=== PATIENT | female | born 1965 | race Caucasian/White ===

== ENCOUNTER 2017-12-05 16:17 | Emergency (ER) | payer OTHER ==
[~2017-12-05] VITALS: Ht 160 cm; Wt 63.5 kg
== END 2017-12-05 19:07 | disposition home or self-care (01) ==
LOC: ER 16:17
DX: S13.8XXA Sprain of joints and ligaments of other parts of neck, initial encounter (principal); S70.01XA Contusion of right hip, initial encounter; S40.011A Contusion of right shoulder, initial encounter; G89.11 Acute pain due to trauma; M54.5 Low back pain; W18.39XA Other fall on same level, initial encounter; Y93.89 Activity, other specified; Y92.89 Other specified places as the place of occurrence of the external cause; Y99.8 Other external cause status

== ENCOUNTER 2018-02-18 09:38 | Emergency (ER) | payer OTHER ==
[~2018-02-18] VITALS: Ht 160 cm; Wt 61.2 kg
[2018-02-18] MEDS ORDERED: AMOX1TAB5 PO (12:14)
[2018-02-18] MEDS ORDERED: TUSSI PRES-B L120 M1 PO (12:14)
[2018-02-18] MEDS ORDERED: MEDROLPACK PO (12:14)
== END 2018-02-18 12:36 | disposition home or self-care (01) ==
LOC: ER 09:38
DX: J06.9 Acute upper respiratory infection, unspecified (principal); J11.1 Influenza due to unidentified influenza virus with other respiratory manifestations

== ENCOUNTER 2018-10-30 10:44 | Emergency (ER) | payer OTHER ==
[~2018-10-30] VITALS: Ht 160 cm; Wt 68.0 kg
[~2018-10-30 10:44] MED LIST: AMOX1TAB5 PO; MEDROLPACK PO; TUSSI PRES-B L120 M1 PO
[2018-10-30] MEDS ORDERED: LEVSIN/SL0.125 MG SL (17:30)
[2018-10-30] MEDS ORDERED: PEPCID AC20 MG PO (17:30)
[2018-10-30] MEDS ORDERED: ZOFRAN4 MG PO (17:30)
[2018-10-30] MEDS ORDERED: INTESTINEX680 M1 PO (17:30)
== END 2018-10-30 17:50 | disposition home or self-care (01) ==
LOC: ER 10:44
DX: K52.89 Other specified noninfective gastroenteritis and colitis (principal)

== ENCOUNTER 2018-11-10 21:28 | Emergency (ER) | payer OTHER ==
[~2018-11-10] VITALS: Ht 160 cm; Wt 63.5 kg
[~2018-11-10 21:28] MED LIST changes: +INTESTINEX680 M1 PO; +LEVSIN/SL0.125 MG SL; +PEPCID AC20 MG PO; +ZOFRAN4 MG PO
== END 2018-11-11 09:56 | disposition home or self-care (01) ==
LOC: ER 21:28
DX: I80.8 Phlebitis and thrombophlebitis of other sites (principal); L76.32 Postprocedural hematoma of skin and subcutaneous tissue following other procedure; S51.842S Puncture wound with foreign body of left forearm, sequela; Y84.8 Other medical procedures as the cause of abnormal reaction of the patient, or of later complication, without mention of misadventure at the time of the procedure

== ENCOUNTER 2019-03-20 13:55 | Emergency (ER) | payer OTHER ==
[~2019-03-20] VITALS: Ht 162.6 cm; Wt 63.5 kg
[2019-03-20] MEDS ORDERED: TUSNEL DM LIQU473 ML PO (16:25)
[2019-03-20] MEDS ORDERED: CLARITIN10 M1 PO (16:25)
== END 2019-03-20 16:47 | disposition home or self-care (01) ==
LOC: ER 13:55
DX: J00 Acute nasopharyngitis [common cold] (principal)

== ENCOUNTER 2019-04-03 10:30 | Outpatient (CLI) | payer OTHER ==
[~2019-04-03 10:30] MED LIST changes: +CLARITIN10 M1 PO; +TUSNEL DM LIQU473 ML PO
== END 2019-04-03 15:36 | disposition home or self-care (01) ==
LOC: LAB 10:30
DX: E55.9 Vitamin D deficiency, unspecified (principal); R42 Dizziness and giddiness; R00.2 Palpitations; E78.5 Hyperlipidemia, unspecified; Z00.00 Encounter for general adult medical examination without abnormal findings

== ENCOUNTER 2019-04-25 14:29 | Emergency (ER) | payer OTHER ==
[~2019-04-25] VITALS: Ht 160 cm; Wt 68.0 kg
== END 2019-04-25 19:00 | disposition home or self-care (01) ==
LOC: ER 14:29
DX: B33.8 Other specified viral diseases (principal); B96.0 Mycoplasma pneumoniae [M. pneumoniae] as the cause of diseases classified elsewhere

== ENCOUNTER 2019-05-01 14:57 | Outpatient (CLI) | payer OTHER | END 2019-05-01 14:58 | disposition home or self-care (01) | LOC: RAD 14:57 | DX: B96.0 Mycoplasma pneumoniae [M. pneumoniae] as the cause of diseases classified elsewhere (principal); R05 Cough ==

== ENCOUNTER 2019-08-21 14:22 | Emergency (ER) | payer OTHER ==
[~2019-08-21] VITALS: Ht 160 cm; Wt 74.8 kg
[2019-08-21] MEDS ORDERED: KETO10TA2 PO (18:32)
[2019-08-21] MEDS ORDERED: NORFLEX100MG PO (18:32)
[2019-08-21] MEDS ORDERED: TUSNEL LIQUID178 ML PO (18:32)
[2019-08-21] MEDS ORDERED: CLARITIN10 MG PO (18:32)
== END 2019-08-21 21:09 | disposition home or self-care (01) ==
LOC: ER 14:22
DX: J00 Acute nasopharyngitis [common cold] (principal); M62.838 Other muscle spasm

== ENCOUNTER 2019-08-25 16:06 | Emergency (ER) | payer OTHER ==
[~2019-08-25] VITALS: Ht 160 cm; Wt 63.5 kg
[~2019-08-25 16:06] MED LIST changes: +CLARITIN10 MG PO; +KETO10TA2 PO; +NORFLEX100MG PO; +TUSNEL LIQUID178 ML PO
== END 2019-08-25 19:21 | disposition home or self-care (01) ==
LOC: ER 16:06
DX: M47.892 Other spondylosis, cervical region (principal); M54.6 Pain in thoracic spine; M54.5 Low back pain; M25.512 Pain in left shoulder; M25.511 Pain in right shoulder

== ENCOUNTER 2020-11-19 17:00 | Emergency (ER) | payer OTHER ==
[~2020-11-19] VITALS: Ht 160 cm; Wt 65.8 kg
== END 2020-11-19 18:53 | disposition home or self-care (01) ==
LOC: ER 17:00
DX: M54.2 Cervicalgia (principal); M62.838 Other muscle spasm; M94.0 Chondrocostal junction syndrome [Tietze]

== ENCOUNTER 2020-11-29 18:15 | Emergency (ER) | payer OTHER ==
[~2020-11-29] VITALS: Ht 160 cm; Wt 63.5 kg
== END 2020-11-29 22:36 | disposition home or self-care (01) ==
LOC: ER 18:15
DX: R00.2 Palpitations (principal); G89.29 Other chronic pain; M54.2 Cervicalgia

== ENCOUNTER 2020-12-07 16:11 | Outpatient (CLI) | payer OTHER | END 2020-12-07 16:23 | disposition home or self-care (01) | LOC: MRI 16:11 | DX: M54.2 Cervicalgia (principal) | CPT/HCPCS: 72141 ==

== ENCOUNTER 2021-04-10 18:44 | Emergency (ER) | payer OTHER ==
[~2021-04-10] VITALS: Ht 160 cm; Wt 68.0 kg
[2021-04-10] MEDS ORDERED: MUPIROCIN15 GM TOP (20:47)
[2021-04-10] MEDS ORDERED: SM CALAMINE LO177 ML TOP (20:47)
[2021-04-10] MEDS ORDERED: MEDROLPACK PO (20:47)
== END 2021-04-10 20:51 | disposition home or self-care (01) ==
LOC: ER 18:44
DX: R21 Rash and other nonspecific skin eruption (principal); L20.89 Other atopic dermatitis

== ENCOUNTER → 2021-04-15 10:15 | Outpatient (CLI) | payer OTHER ==
[~2021-04-15 10:15] MED LIST changes: +ALLEGRA ALLERG180 MG PO; +MUPIROCIN15 GM TOP; +SM CALAMINE LO177 ML TOP
== END | disposition home or self-care (01) ==
LOC: LAB 10:15
PROVIDERS: ATTEND Obstetrics & Gynecology
DX: E11.9 Type 2 diabetes mellitus without complications (principal); E03.0 Congenital hypothyroidism with diffuse goiter; E78.00 Pure hypercholesterolemia, unspecified; N39.0 Urinary tract infection, site not specified; N91.1 Secondary amenorrhea

== ENCOUNTER 2021-04-16 00:36 | Emergency (ER) | payer OTHER ==
[~2021-04-16] VITALS: Ht 160 cm; Wt 68.0 kg
[~2021-04-16 00:36] MED LIST changes: -ALLEGRA ALLERG180 MG PO
[2021-04-16] MEDS ORDERED: ALLEGRA ALLERG180 MG PO (01:44)
== END 2021-04-16 02:07 | disposition home or self-care (01) ==
LOC: ER 00:36
DX: T78.49XA Other allergy, initial encounter (principal); X58.XXXA Exposure to other specified factors, initial encounter

== ENCOUNTER 2021-05-02 11:22 | Outpatient (CLI) | payer OTHER ==
[~2021-05-02 11:22] MED LIST changes: +ALLEGRA ALLERG180 MG PO
== END 2021-05-02 11:37 | disposition home or self-care (01) ==
LOC: MAMO-SONO 11:22
PROVIDERS: ATTEND Obstetrics & Gynecology
DX: N60.11 Diffuse cystic mastopathy of right breast (principal); N60.12 Diffuse cystic mastopathy of left breast; Z12.31 Encounter for screening mammogram for malignant neoplasm of breast

== ENCOUNTER 2021-07-02 15:54 | Emergency (ER) | payer OTHER ==
[~2021-07-02] VITALS: Ht 160 cm; Wt 65.8 kg
== END 2021-07-02 19:40 | disposition home or self-care (01) ==
LOC: ER 15:54
DX: M54.2 Cervicalgia (principal); M62.838 Other muscle spasm; M79.642 Pain in left hand

== ENCOUNTER 2021-07-03 12:39 | Outpatient (CLI) | payer OTHER | END 2021-07-03 12:44 | disposition home or self-care (01) | LOC: MRI 12:39 | PROVIDERS: ATTEND Emergency Medicine | DX: M47.892 Other spondylosis, cervical region (principal); M79.602 Pain in left arm; R20.8 Other disturbances of skin sensation | CPT/HCPCS: 72141 ==

== ENCOUNTER → 2021-07-03 | Outpatient (CLI) | payer OTHER | END | disposition home or self-care (01) | LOC: NUCLEAR 11:47 | PROVIDERS: ATTEND Emergency Medicine | DX: M79.602 Pain in left arm (principal); G54.2 Cervical root disorders, not elsewhere classified; R20.0 Anesthesia of skin ==

== ENCOUNTER 2021-11-04 15:31 | Emergency (ER) | payer OTHER ==
[~2021-11-04] VITALS: Ht 160 cm; Wt 63.5 kg
== END 2021-11-04 16:44 | disposition home or self-care (01) ==
LOC: ER 15:31
DX: M77.51 Other enthesopathy of right foot and ankle (principal)

== ENCOUNTER 2022-02-26 09:07 | Outpatient (CLI) | payer OTHER | END 2022-02-26 09:14 | disposition home or self-care (01) | LOC: LAB 09:07 | DX: R73.9 Hyperglycemia, unspecified (principal); E78.5 Hyperlipidemia, unspecified; D64.9 Anemia, unspecified; E87.6 Hypokalemia; R74.01 Elevation of levels of liver transaminase levels; N39.0 Urinary tract infection, site not specified ==

== ENCOUNTER → 2022-09-28 09:40 | Outpatient (CLI) | payer OTHER | END | disposition home or self-care (01) | LOC: LAB 09:40 | DX: D64.9 Anemia, unspecified (principal); R74.01 Elevation of levels of liver transaminase levels; R94.6 Abnormal results of thyroid function studies; N39.0 Urinary tract infection, site not specified; R73.9 Hyperglycemia, unspecified; E78.00 Pure hypercholesterolemia, unspecified ==

== ENCOUNTER 2022-10-01 08:50 | Emergency (ER) | payer OTHER ==
[~2022-10-01] VITALS: Ht 160 cm; Wt 65.8 kg
== END 2022-10-01 10:23 | disposition home or self-care (01) ==
LOC: ER 08:50
DX: J06.9 Acute upper respiratory infection, unspecified (principal); Z20.822 Contact with and (suspected) exposure to COVID-19

== ENCOUNTER 2022-10-11 11:22 | Emergency (ER) | payer OTHER ==
[~2022-10-11] VITALS: Ht 162.6 cm; Wt 61.2 kg
== END 2022-10-11 17:51 | disposition home or self-care (01) ==
LOC: ER 11:22
DX: R51.9 Headache, unspecified (principal)

== ENCOUNTER 2022-10-24 13:38 | Outpatient (CLI) | payer OTHER | END 2022-10-24 13:46 | disposition home or self-care (01) | LOC: MAMO-SONO 13:38 | DX: Z12.31 Encounter for screening mammogram for malignant neoplasm of breast (principal); M48.02 Spinal stenosis, cervical region | CPT/HCPCS: 72141 ==

== ENCOUNTER 2022-11-16 11:45 | Outpatient (CLI) | payer OTHER | END 2022-11-16 11:50 | disposition home or self-care (01) | LOC: RAD 11:45 | DX: J44.9 Chronic obstructive pulmonary disease, unspecified (principal) ==

== ENCOUNTER 2023-01-01 17:12 | Emergency (ER) | payer OTHER ==
[~2023-01-01] VITALS: Ht 162.6 cm; Wt 63.5 kg
== END 2023-01-01 21:29 | disposition home or self-care (01) ==
LOC: ER 17:12
DX: S92.911A Unspecified fracture of right toe(s), initial encounter for closed fracture (principal); W22.8XXA Striking against or struck by other objects, initial encounter; Y93.89 Activity, other specified; Y92.832 Beach as the place of occurrence of the external cause

== ENCOUNTER 2023-01-20 22:22 | Emergency (ER) | payer OTHER ==
[~2023-01-20] VITALS: Ht 160 cm; Wt 63.5 kg
[2023-01-21] MEDS ORDERED: DICLOFENAC SODI75 MG PO (03:08)
== END 2023-01-21 03:31 ==
LOC: ER 22:22
DX: B34.8 Other viral infections of unspecified site (principal); Z20.822 Contact with and (suspected) exposure to COVID-19

== ENCOUNTER 2023-07-15 09:14 | Emergency (ER) | payer OTHER ==
[~2023-07-15] VITALS: Ht 162.6 cm; Wt 63.5 kg
[~2023-07-15 09:14] MED LIST changes: +DICLOFENAC SODI75 MG PO
[2023-07-15 11:02] LABS: PH,URINE 6.5 (5.0-8.0); URINE APPEARANCE Clear; URINE BILIRRUBIN Negative (NEGATIVE); URINE BLOOD Small; URINE COLOR Yellow; URINE GLUCOSE Negative (NEGATIVE); URINE LEUKOCYTE Moderate; URINE NITRATE Negative; URINE PROTEIN Negative (NEGATIVE); URINE UROBILINOGEN 0.2 E.U./dl
[2023-07-15 11:04] LABS: HEMATOCRIT 38.4 % (36.0-45.00); MEAN CELL VOLUME 93.3 fL (80.00-100.00); MEAN CORPUSCULAR HEMOGLOBIN 31.6 pg (27.00-32.0); MEAN CORPUSCULAR HGB CONC 33.9 g/dl (32.0-36.0); PLATELET COUNT 321 K/uL (150-450); RED BLOOD COUNT 4.12 M/uL (4.00-6.00); RED CELL DISTRIBUTION WIDTH 13.4 % (11.5-14.5)
[2023-07-15 11:08] LABS: URINE BACTERIA 2786.4 uL (0.0-1933); URINE EPITHELIAL CELLS 6.8 uL (0.0-38.8); URINE RBC 7.1 uL (0.0-20.8); URINE WBC 448.9 uL (0.0-23.2)
[2023-07-15 11:20] LABS: CALCIUM 9.1 mg/dL (8.5-10.1); CREATININE SERUM 0.65 mg/dL (0.55-1.02); GFR 94.29; POTASSIUM 4.19 mEq/L (3.5-5.1)
== END 2023-07-15 13:58 | disposition home or self-care (01) ==
LOC: ER 09:14
PROVIDERS: General Practice
DX: N30.80 Other cystitis without hematuria (principal)
CPT/HCPCS: 36415; 96372; 99284; J0696

== ENCOUNTER 2023-07-30 10:36 | Emergency (ER) | payer OTHER ==
[~2023-07-30] VITALS: Ht 160 cm; Wt 65.8 kg
[2023-07-30 13:50] LABS: HEMATOCRIT 40.2 % (36.0-45.00); HEMOGLOBIN 13.8 g/dL (12.0-15.00); MEAN CELL VOLUME 92.6 fL (80.00-100.00); MEAN CORPUSCULAR HEMOGLOBIN 31.8 pg (27.00-32.0); MEAN CORPUSCULAR HGB CONC 34.3 g/dl (32.0-36.0); PLATELET COUNT 363 K/uL (150-450); RED BLOOD COUNT 4.33 M/uL (4.00-6.00); RED CELL DISTRIBUTION WIDTH 12.6 % (11.5-14.5)
[2023-07-30 14:15] LABS: ALBUMIN 3.9 gm/dL (3.4-5.0); BILIRUBIN TOTAL 0.48 mg/dL (0.3-1.2); CALCIUM 9.7 mg/dL (8.5-10.1); CREATININE SERUM 0.61 mg/dL (0.55-1.02); GFR 101.46; GLOBULINA 4.4 G/DL (2.4-3.5); POTASSIUM 3.94 mEq/L (3.5-5.1); TOTAL PROTEIN 8.3 gm/dL (6.4-8.2)
== END 2023-07-30 18:00 | disposition home or self-care (01) ==
LOC: ER 10:36
PROVIDERS: Emergency Medicine
DX: R42 Dizziness and giddiness (principal)

== ENCOUNTER 2024-02-20 12:13 | Emergency (ER) | payer OTHER ==
[~2024-02-20] VITALS: Ht 160 cm; Wt 63.5 kg
[2024-02-20 14:07] LABS: MEAN CORPUSCULAR HEMOGLOBIN 31.7 pg (27.00-32.0); MEAN CORPUSCULAR HGB CONC 34.1 g/dl (32.0-36.0); PLATELET COUNT 366 K/uL (150-450); RED BLOOD COUNT 4.41 M/uL (4.00-6.00); RED CELL DISTRIBUTION WIDTH 13.7 % (11.5-14.5)
[2024-02-20] MEDS ORDERED: DEXAMETHASONE SODIUM PHOSPHATE 4 MG/ML VIAL IM STA (16:16)
[2024-02-20] MEDS ORDERED: ORPHENADRINE CITRATE 30 MG/ML AMPUL IM STA (16:16)
[2024-02-20] MEDS ORDERED: CARISOPRODL-AS1 EACH PO ×2 (16:18→16:27)
[2024-02-20] MEDS ORDERED: DEXAMETHASONE SODIUM PHOSPHATE 4 MG/ML VIAL ONE (16:21)
[2024-02-20] MEDS ORDERED: ORPHENADRINE CITRATE 100 MG TABLET PO ONE (16:30)
== END 2024-02-20 16:56 | disposition home or self-care (01) ==
LOC: ER 12:13
DX: M62.838 Other muscle spasm (principal); M54.2 Cervicalgia; G89.29 Other chronic pain
CPT/HCPCS: 36415; 72125; 96372; 99284; J1100; J2360

== ENCOUNTER 2024-02-28 09:27 | Outpatient (CLI) | payer OTHER ==
[~2024-02-28 09:27] MED LIST changes: +CARISOPRODL-AS1 EACH PO
[2024-02-28 10:25] LABS: HEMATOCRIT 39.5 % (36.0-45.00); HEMOGLOBIN 13.2 g/dL (12.0-15.00); MEAN CELL VOLUME 93.6 fL (80.00-100.00); MEAN CORPUSCULAR HEMOGLOBIN 31.2 pg (27.00-32.0); MEAN CORPUSCULAR HGB CONC 33.3 g/dl (32.0-36.0); PLATELET COUNT 331 K/uL (150-450); RED BLOOD COUNT 4.22 M/uL (4.00-6.00); RED CELL DISTRIBUTION WIDTH 13.2 % (11.5-14.5)
[2024-02-28 10:27] LABS: URINE APPEARANCE Clear; URINE BILIRRUBIN Negative (NEGATIVE); URINE BLOOD Negative; URINE COLOR Yellow; URINE GLUCOSE Negative (NEGATIVE); URINE KETONE Negative (NEGATIVE); URINE LEUKOCYTE Negative; URINE NITRATE Negative; URINE PROTEIN Negative (NEGATIVE); URINE UROBILINOGEN 0.2 E.U./dl
[2024-02-28 10:28] LABS: URINE BACTERIA 11.3 uL (0.0-1933); URINE EPITHELIAL CELLS 2.7 uL (0.0-38.8); URINE RBC 3.9 uL (0.0-20.8)
[2024-02-28 10:31] LABS: URINE WBC 0.4 uL (0.0-23.2)
[2024-02-28 11:20] LABS: ALBUMIN 3.7 gm/dL (3.4-5.0); BILIRUBIN TOTAL 0.35 mg/dL (0.3-1.2); CALCIUM 9.2 mg/dL (8.5-10.1); CHOL HDL RATIO 3.9 (0-5.0); CREATININE SERUM 0.61 mg/dL (0.55-1.02); GFR 101.09; GLOBULINA 3.6 G/DL (2.4-3.5); POTASSIUM 4.4 mEq/L (3.5-5.1); T4 FREE 0.79 NG/ML (0.76-1.46); TOTAL PROTEIN 7.3 gm/dL (6.4-8.2); TSH 0.696 uIU/mL (0.358-3.74)
== END 2024-02-28 09:37 | disposition home or self-care (01) ==
LOC: LAB 09:27
PROVIDERS: ATTEND Obstetrics & Gynecology
DX: E11.9 Type 2 diabetes mellitus without complications (principal); E03.0 Congenital hypothyroidism with diffuse goiter; E78.00 Pure hypercholesterolemia, unspecified; N39.0 Urinary tract infection, site not specified; K76.9 Liver disease, unspecified; R63.4 Abnormal weight loss; A60.04 Herpesviral vulvovaginitis; R21 Rash and other nonspecific skin eruption; R50.9 Fever, unspecified

== ENCOUNTER 2024-02-28 10:54 | Outpatient (CLI) | payer OTHER | END 2024-02-28 11:13 | disposition home or self-care (01) | LOC: MRI 10:54 | PROVIDERS: ATTEND Obstetrics & Gynecology | DX: M48.02 Spinal stenosis, cervical region (principal); M50.322 Other cervical disc degeneration at C5-C6 level | CPT/HCPCS: 72141 ==

== ENCOUNTER 2024-03-06 09:05 | Outpatient (CLI) | payer OTHER | END 2024-03-06 09:19 | disposition home or self-care (01) | LOC: MRI 09:05 | DX: R51.9 Headache, unspecified (principal); H81.4 Vertigo of central origin | CPT/HCPCS: 70551 ==

== ENCOUNTER 2024-03-12 08:59 | Outpatient (CLI) | payer OTHER ==
[2024-03-12 09:51] LABS: HEMATOCRIT 40.3 % (36.0-45.00); HEMOGLOBIN 13.5 g/dL (12.0-15.00); MEAN CELL VOLUME 94.1 fL (80.00-100.00); MEAN CORPUSCULAR HEMOGLOBIN 31.6 pg (27.00-32.0); MEAN CORPUSCULAR HGB CONC 33.5 g/dl (32.0-36.0); PLATELET COUNT 338 K/uL (150-450); RED BLOOD COUNT 4.28 M/uL (4.00-6.00); RED CELL DISTRIBUTION WIDTH 12.8 % (11.5-14.5)
[2024-03-12 11:49] LABS: ALBUMIN 3.9 gm/dL (3.4-5.0); BILIRUBIN TOTAL 0.57 mg/dL (0.3-1.2); CALCIUM 9.9 mg/dL (8.5-10.1); CREATININE SERUM 0.69 mg/dL (0.55-1.02); GFR 87.69; GLOBULINA 4.1 G/DL (2.4-3.5); POTASSIUM 4.86 mEq/L (3.5-5.1)
[2024-03-12 12:03] LABS: VITAMIN D3 25 HYDROXY 31.34 ng/ml (30-120)
== END 2024-03-12 09:03 | disposition home or self-care (01) ==
LOC: LAB 08:59
DX: E55.9 Vitamin D deficiency, unspecified (principal); D51.9 Vitamin B12 deficiency anemia, unspecified; D64.9 Anemia, unspecified

== ENCOUNTER 2024-03-18 09:15 | Outpatient (CLI) | payer OTHER | END 2024-03-18 09:16 | disposition home or self-care (01) | LOC: NUCLEAR 09:15 | DX: I65.29 Occlusion and stenosis of unspecified carotid artery (principal) ==

== ENCOUNTER 2024-07-17 13:37 | Outpatient (CLI) | payer OTHER | END 2024-07-17 14:06 | disposition home or self-care (01) | LOC: MRI 13:37 | DX: M54.50 Low back pain, unspecified (principal) | CPT/HCPCS: 72148 ==

== ENCOUNTER 2024-09-23 09:44 | Outpatient (CLI) | payer OTHER ==
[2024-09-23 10:55] LABS: PH,URINE 6.5 (5.0-8.0); URINE APPEARANCE Clear; URINE BILIRRUBIN Negative (NEGATIVE); URINE BLOOD Negative; URINE COLOR Yellow; URINE GLUCOSE Negative (NEGATIVE); URINE KETONE Negative (NEGATIVE); URINE LEUKOCYTE Negative; URINE NITRATE Negative; URINE PROTEIN Negative (NEGATIVE); URINE UROBILINOGEN 0.2 E.U./dl
[2024-09-23 10:56] LABS: URINE BACTERIA 14.6 uL (0.0-1933); URINE RBC 13.2 uL (0.0-20.8)
[2024-09-23 11:03] LABS: URINE EPITHELIAL CELLS 0.4 uL (0.0-38.8); URINE WBC 0.9 uL (0.0-23.2)
[2024-09-23 11:06] LABS: HEMATOCRIT 38.7 % (36.0-45.00); HEMOGLOBIN 12.8 g/dL (12.0-15.00); MEAN CELL VOLUME 94.3 fL (80.00-100.00); MEAN CORPUSCULAR HEMOGLOBIN 31.1 pg (27.00-32.0); PLATELET COUNT 304 K/uL (150-450); RED CELL DISTRIBUTION WIDTH 13.1 % (11.5-14.5)
[2024-09-23 12:03] LABS: ALBUMIN 3.6 gm/dL (3.4-5.0); BILIRUBIN TOTAL 0.3 mg/dL (0.3-1.2); CALCIUM 9.3 mg/dL (8.5-10.1); CHOL HDL RATIO 3.5 (0-5.0); CREATININE SERUM 0.62 mg/dL (0.55-1.02); GFR 98.86; GLOBULINA 3.4 G/DL (2.4-3.5); POTASSIUM 4.18 mEq/L (3.5-5.1)
[2024-09-23 14:32] LABS: T3 TOTAL 1.21 ng/ml (0.846-2.02); VITAMIN D3 25 HYDROXY 31.45 ng/ml (30-120)
[2024-09-23 20:13] LABS: T4 TOTAL 7.67 UG/DL (4.8-13.9); TSH 0.795 uIU/mL (0.358-3.74)
[2024-09-24 09:05] LABS: FOLLICLE STIMULATING HORMONE 73.8 mIU/mL (.); LEUTEINIZING HORMONE 27.8 mIU/mL (.)
== END 2024-09-23 09:50 | disposition home or self-care (01) ==
LOC: LAB 09:44
DX: D64.9 Anemia, unspecified (principal); R74.01 Elevation of levels of liver transaminase levels; Z13.220 Encounter for screening for lipoid disorders; Z13.29 Encounter for screening for other suspected endocrine disorder; R73.9 Hyperglycemia, unspecified; N39.0 Urinary tract infection, site not specified; R80.9 Proteinuria, unspecified; N95.1 Menopausal and female climacteric states; E55.9 Vitamin D deficiency, unspecified

== ENCOUNTER 2024-10-12 09:20 | Outpatient (CLI) | payer OTHER | END 2024-10-12 09:23 | disposition home or self-care (01) | LOC: LAB 09:20 | PROVIDERS: ATTEND Obstetrics & Gynecology | DX: N39.0 Urinary tract infection, site not specified (principal) ==

== ENCOUNTER 2025-01-28 09:59 | Outpatient (CLI) | payer OTHER | END 2025-01-28 10:13 | disposition home or self-care (01) | LOC: MRI 09:59 | DX: M25.561 Pain in right knee (principal); M54.2 Cervicalgia; M54.00 Panniculitis affecting regions of neck and back, site unspecified; M25.559 Pain in unspecified hip; R10.2 Pelvic and perineal pain | CPT/HCPCS: 72141; 72148; 73721 ==

== ENCOUNTER 2025-04-20 10:35 | Outpatient (CLI) | payer OTHER ==
[2025-04-20 11:15] LABS: BASO % 0.5 % (0.1-1.2); EOS # 0.14 (0.04-0.54); EOS % 1.8 % (0.7-7.0); LYMPH # 2.74 (1.18-3.74); LYMPH % 35.9 % (19.3-53.1); MEAN PLATELET VOLUME 10.20 fl (9.4-12.4); MONO # 0.40 (0.24-0.82); MONO % 5.2 % (4.7-12.5); NEUT # 4.31 (1.56-6.13); NEUT % 56.5 % (34.0-71.1); RED CELL DISTRIBUTION WIDTH 12.2 % (11.6-14.4)
[2025-04-20 11:20] LABS: ERYTHROCYTE SEDIMENTATION RATE 37 mm/hr (0-30)
[2025-04-20 11:28] LABS: URINE APPEARANCE Clear; URINE BILIRRUBIN Negative (NEGATIVE); URINE COLOR Yellow; URINE GLUCOSE Negative (NEGATIVE); URINE KETONE Negative (NEGATIVE); URINE LEUKOCYTE Negative; URINE NITRATE Negative; URINE PROTEIN Negative (NEGATIVE); URINE UROBILINOGEN 0.2 E.U./dl
[2025-04-20 11:33] LABS: URINE RBC 8.3 uL (0.0-20.8)
[2025-04-20 11:34] LABS: URINE BACTERIA 3.5 uL (0.0-1933); URINE CAST 0.00 uL (0.0-1.40); URINE EPITHELIAL CELLS 1.3 uL (0.0-38.8); URINE WBC 0.3 uL (0.0-23.2)
[2025-04-20 11:35] LABS: URINE BLOOD TRACES
[2025-04-20 12:24] LABS: ALT/SGPT 25 U/L (12-78); AST/SGOT 13 U/L (15-37); BILIRUBIN TOTAL 0.40 mg/dL (0.3-1.2); BUN CREA RATIO 17 (7.0-25.0); CHOL HDL RATIO 3.9 (0-5.0); CREATININE SERUM 0.70 mg/dL (0.55-1.02); GFR 85.94; GLOBULINA 3.4 G/DL (2.4-3.5); GLUCOSE FASTING 95 mg/dL (65-100); HDL 59 mg/dl (40-60); LDL 159 mg/dl (0-130); OSMOLALITY SERUM 283 MOSM/KG (275-295); T4 TOTAL 7.14 UG/DL (4.8-13.9); TSH 0.820 uIU/mL (0.358-3.74); VLDL 13 (0-39)
[2025-04-20 13:17] LABS: T3 TOTAL 1.22 ng/ml (0.846-2.02); VITAMIN D3 25 HYDROXY 34.33 ng/ml (30-120)
== END 2025-04-20 10:43 | disposition home or self-care (01) ==
LOC: LAB 10:35
DX: D64.9 Anemia, unspecified (principal); R74.01 Elevation of levels of liver transaminase levels; E78.00 Pure hypercholesterolemia, unspecified; R73.9 Hyperglycemia, unspecified; R82.90 Unspecified abnormal findings in urine; E03.9 Hypothyroidism, unspecified; E55.9 Vitamin D deficiency, unspecified; R65.10 Systemic inflammatory response syndrome (SIRS) of non-infectious origin without acute organ dysfunction; D51.9 Vitamin B12 deficiency anemia, unspecified

== ENCOUNTER 2025-04-26 09:49 | Emergency (ER) | payer OTHER ==
[~2025-04-26] VITALS: Ht 157.5 cm; Wt 72.6 kg
[2025-04-26] MEDS ORDERED: KETOROLAC TROMETHAMINE 60 MG VIAL IM ONE ×2 (10:45→10:55)
[2025-04-26] MEDS ORDERED: ORPHENADRINE CITRATE 100 MG TABLET PO ONE (10:45)
[2025-04-26] MEDS ORDERED: DEXAMETHASONE SODIUM PHOSPHATE 4 MG/ML VIAL IM ONE (10:45)
[2025-04-26] MEDS ORDERED: DEXAMETHASONE SODIUM PHOSPHATE 4 MG/ML VIAL ONE (10:55)
[2025-04-26 12:13] LABS: BASO % 0.1 % (0.1-1.2); EOS # 0.01 (0.04-0.54); EOS % 0.1 % (0.7-7.0); LYMPH # 2.84 (1.18-3.74); LYMPH % 15.2 % (19.3-53.1); MEAN PLATELET VOLUME 10.10 fl (9.4-12.4); MONO # 0.91 (0.24-0.82); MONO % 4.9 % (4.7-12.5); NEUT # 14.86 (1.56-6.13); NEUT % 79.2 % (34.0-71.1); RED CELL DISTRIBUTION WIDTH 12.3 % (11.6-14.4)
[2025-04-26 12:36] LABS: INR 1.01
[2025-04-26 12:39] LABS: ALT/SGPT 26.0 U/L (12-78); AST/SGOT 15.0 U/L (15-37); BILIRUBIN TOTAL 0.37 mg/dL (0.3-1.2); BUN CREA RATIO 23.0 (7.0-25.0); CREATININE SERUM 0.73 mg/dL (0.55-1.02); GFR 81.88; GLOBULINA 3.7 G/DL (2.4-3.5); GLUCOSE FASTING 92.0 mg/dL (65-100); OSMOLALITY SERUM 284.0 MOSM/KG (275-295)
[2025-04-26 12:48] LABS: URINE APPEARANCE Clear; URINE BILIRRUBIN Negative (NEGATIVE); URINE BLOOD Negative; URINE COLOR Yellow; URINE GLUCOSE Negative (NEGATIVE); URINE KETONE Negative (NEGATIVE); URINE LEUKOCYTE Negative; URINE NITRATE Negative; URINE PROTEIN 30 (NEGATIVE); URINE UROBILINOGEN 1.0 E.U./dl
[2025-04-26 12:50] LABS: URINE BACTERIA 92.3 uL (0.0-1933); URINE EPITHELIAL CELLS 50.4 uL (0.0-38.8); URINE RBC 23.6 uL (0.0-20.8); URINE WBC 9.2 uL (0.0-23.2)
[2025-04-26 12:56] LABS: URINE CAST 0.00 uL (0.0-1.40)
[2025-04-26 13:33] LABS: COVID-19 AG NEGATIVE (NEGATIVE)
[2025-04-26] MEDS ORDERED: NAPROXEN500 MG PO (14:47)
[2025-04-26] MEDS ORDERED: FEXMID7.5 MG PO (14:49)
== END 2025-04-26 18:16 | disposition home or self-care (01) ==
LOC: ER 09:50
DX: M54.2 Cervicalgia (principal); R51.9 Headache, unspecified; Z20.822 Contact with and (suspected) exposure to COVID-19
CPT/HCPCS: 36415; 70450; 71046; 72040; 93005; 96372; 99284; J1100; J1885

== ENCOUNTER 2025-05-04 09:38 | Outpatient (CLI) | payer OTHER ==
[~2025-05-04 09:38] MED LIST changes: +FEXMID7.5 MG PO; +NAPROXEN500 MG PO
[2025-05-04 10:18] LABS: BASO % 0.2 % (0.1-1.2); EOS # 0.11 (0.04-0.54); EOS % 0.7 % (0.7-7.0); LYMPH # 6.19 (1.18-3.74); LYMPH % 41.7 % (19.3-53.1); MEAN PLATELET VOLUME 9.90 fl (9.4-12.4); MONO # 1.03 (0.24-0.82); MONO % 6.9 % (4.7-12.5); NEUT # 7.33 (1.56-6.13); NEUT % 49.5 % (34.0-71.1); RED CELL DISTRIBUTION WIDTH 12.2 % (11.6-14.4)
[2025-05-04 10:23] LABS: URINE APPEARANCE Clear; URINE BILIRRUBIN Negative (NEGATIVE); URINE BLOOD Negative; URINE COLOR Yellow; URINE GLUCOSE Negative (NEGATIVE); URINE KETONE Trace (NEGATIVE); URINE LEUKOCYTE Negative; URINE NITRATE Negative; URINE PROTEIN Negative (NEGATIVE); URINE UROBILINOGEN 0.2 E.U./dl
[2025-05-04 10:26] LABS: URINE EPITHELIAL CELLS 2.4 uL (0.0-38.8); URINE RBC 10.4 uL (0.0-20.8); URINE WBC 1.9 uL (0.0-23.2)
[2025-05-04 10:43] LABS: URINE BACTERIA 3.5 uL (0.0-1933); URINE CAST 0.29 uL (0.0-1.40)
[2025-05-05] MEDS ORDERED: DEXAMETHAS0.5 MG/5 M PO (21:05)
== END 2025-05-04 09:40 | disposition home or self-care (01) ==
LOC: LAB 09:38
PROVIDERS: ATTEND General Practice
DX: D72.829 Elevated white blood cell count, unspecified (principal); N39.0 Urinary tract infection, site not specified

== ENCOUNTER 2025-05-05 20:44 | Emergency (ER) | payer OTHER ==
[~2025-05-05] VITALS: Ht 160 cm; Wt 68.0 kg
[2025-05-05] MEDS ORDERED: DEXAMETHAS0.5 MG/5 M PO (21:05)
[2025-05-06] MEDS ORDERED: TRAMADOL HCL 50 MG TABLET PO ONE (00:30)
[2025-05-06 00:58] LABS: BASO % 0.2 % (0.1-1.2); EOS # 0.20 (0.04-0.54); EOS % 1.6 % (0.7-7.0); LYMPH # 4.64 (1.18-3.74); LYMPH % 36.2 % (19.3-53.1); MEAN PLATELET VOLUME 9.80 fl (9.4-12.4); MONO # 0.87 (0.24-0.82); MONO % 6.8 % (4.7-12.5); NEUT # 7.01 (1.56-6.13); NEUT % 54.7 % (34.0-71.1); RED CELL DISTRIBUTION WIDTH 12.6 % (11.6-14.4)
[2025-05-06 01:23] LABS: ALT/SGPT 33.0 U/L (12-78); AST/SGOT 11.0 U/L (15-37); BILIRUBIN TOTAL 0.21 mg/dL (0.3-1.2); BUN CREA RATIO 37.0 (7.0-25.0); CREATININE SERUM 0.67 mg/dL (0.55-1.02); GFR 90.4; GLOBULINA 3.5 G/DL (2.4-3.5); GLUCOSE FASTING 108.0 mg/dL (65-100); OSMOLALITY SERUM 290.0 MOSM/KG (275-295)
== END 2025-05-06 01:44 | disposition home or self-care (01) ==
LOC: ER 20:44
PROVIDERS: General Practice
DX: R07.89 Other chest pain (principal); R53.83 Other fatigue

== ENCOUNTER 2025-05-10 10:26 | Outpatient (CLI) | payer OTHER ==
[~2025-05-10 10:26] MED LIST changes: +DEXAMETHAS0.5 MG/5 M PO
[2025-05-10 11:41] LABS: BASO % 0.3 % (0.1-1.2); EOS # 0.14 (0.04-0.54); EOS % 1.3 % (0.7-7.0); LYMPH # 2.79 (1.18-3.74); LYMPH % 25.7 % (19.3-53.1); MEAN PLATELET VOLUME 9.70 fl (9.4-12.4); MONO # 0.75 (0.24-0.82); MONO % 6.9 % (4.7-12.5); NEUT # 7.13 (1.56-6.13); NEUT % 65.5 % (34.0-71.1); RED CELL DISTRIBUTION WIDTH 12.5 % (11.6-14.4)
[2025-05-10 12:06] LABS: COVID-19 AG NEGATIVE (NEGATIVE)
[2025-05-10 12:07] LABS: MYCOPLASMA PNEUMONIAE IGM NON REACTIVE (NO REACTIVE)
== END 2025-05-10 10:37 | disposition home or self-care (01) ==
LOC: LAB 10:26
DX: J11.81 Influenza due to unidentified influenza virus with encephalopathy (principal); A49.3 Mycoplasma infection, unspecified site; J06.9 Acute upper respiratory infection, unspecified; Z20.822 Contact with and (suspected) exposure to COVID-19